=== PATIENT | male | born 1970 | race Caucasian/White ===

== ENCOUNTER 2016-10-24 11:11 | Observation (INO) | payer MEDICARE, MEDICAID ==
[~2016-10-24] VITALS: Ht 194.3 cm; Wt 117.7 kg
[~2016-10-24 11:11] MED LIST: AMBIEN 10MG10 MG PO; ASPIRIN E.C.325 MG PO; ATIVAN 1MG T1 MG/TAB PO; BACTRIM DS 8001 TAB PO; CARDENE 30MG CA30 MG PO; CEPHALEXIN500 M1 PO; COZAAR 25MG25 MG/TAB PO; DEXILANT30 MG PO; DICLOFENAC SOD75 MG PO; DILAUDID 4MG TAB4 MG PO; FLUOXETINE20 M1 PO; INDAPAMIDE2.5 MG PO; KLOR-CON M2020 MEQ PO; LORTAB 5/500 501 TAB PO; MS CONTIN 115 MG/TAB PO; MVI PO; NAPROSYN500 MG PO; NEURONTIN600 MG/TAB; NEURONTIN800 MG/TAB PO; NITROSTAT0.3 MG SL; NO HOME MEDICATIONS; NORCO 325 MG-101 TAB PO; NORCO 325 MG-51 TAB PO; NORCO 325 MG-7.1 TAB PO; OXYCONTIN 20MG20 MG PO; PERCOCET 325 MG1 TA2 PO; PERCOCET 325 MG1 TAB PO; PERCR 7.5 PO; PHENERGAN 25 TA25 MG PO; PRAVASTATIN40 MG PO; PREDNISONE10 MG PO; PROZAC 20MG20 MG PO; RANITIDINE150 MG PO; RESTORIL30 MG PO; VALIUM5 MG PO; VIIBRYD10 MG PO; XANAX .25M0.25 MG/TA PO; ZANAFLEX 4MG TAB4 MG; ZANAFLEX 4MG TAB4 MG PO; ZANTAC 150MG T150 MG PO; ZANTAC150 MG PO; ZESTRIL 5MG5 MG PO; ZOCOR40 MG PO; ZYLOPRIM 300MG300 MG PO; [UNRECOGNIZED DRUG - OTHER]
[2016-10-24] MEDS ORDERED: REXULTI0.5 MG PO (11:28)
[2016-10-24 12:12] LABS: BASO # 0.1 (0.0-0.2); BASO % 1.1 % (0.0-2.0); EOS # 0.2 (0.0-0.7); EOS % 1.9 % (0-4.0); GRAN # 5.3 (1.4-6.5); GRAN % 61.5 % (42.2-75.2); HEMATOCRIT 47.1 % (42.0-52.0); HEMOGLOBIN 16.2 g/dl (13.5-18.0); LYMPH # 2.4 (1.2-3.4); LYMPH % 28.2 % (20.0-51.0); MEAN CELL VOLUME 87 fl (80.0-100.0); MEAN CORPUSCULAR HEMOGLOBIN 30 pg (27.0-31.0); MEAN CORPUSCULAR HGB CONC 34 g/dl (33.0-37.0); MEAN PLATELET VOLUME 10.5 fl (7.4-10.4); MONO # 0.6 (0.1-0.6); MONO % 7.1 % (1.7-9.3); PLATELET COUNT 268 K/mm3 (130-400); RED BLOOD COUNT 5.39 M/mm3 (4.20-5.60); REDCELL DISTRIBUTION WIDTH-CV 12.3 % (11.5-14.5); WHITE BLOOD COUNT 8.6 K/mm3 (4.8-10.8)
[2016-10-24 12:26] LABS: ADJUSTED CALCIUM 9.3 mg/dL (8.4-10.2); ALANINE AMINOTRANSFERASE 60 U/L (21-72); ALBUMIN 4.7 gm/dL (3.5-5.0); ALKALINE PHOSPHATASE 108 U/L (50-136); ANION GAP 13 mmol/L (7-16); BLOOD UREA NITROGEN 21 mg/dL (9-20); C-REACTIVE PROTEIN 0.6 mg/dL (0.0-0.9); CALCIUM 9.9 mg/dL (8.4-10.2); CARBON DIOXIDE 25 mmol/L (22-30); CHLORIDE 100 mmol/L (98-107); CREATININE, serum 1.02 mg/dL (0.66-1.25); GLUCOSE 101 mg/dL (74-106); LIPASE 111 U/L (23-300); POTASSIUM 3.7 mmol/L (3.4-5.0); SODIUM 138 mmol/L (137-145); TOTAL PROTEIN 8.3 gm/dL (6.4-8.2)
[2016-10-24 12:32] LABS: B-TYPE NATRIURETIC PEPTIDE 35 pg/mL (0-125)
[2016-10-24 12:42] LABS: TROPONIN-I < 0.012 ng/mL (0.000-0.034)
[2016-10-24 14:58] VITALS: BP 130/83; PULSE 57; TEMP 97.7
[2016-10-24] MEDS ORDERED: LOZOL1.25 MG PO (15:09)
[2016-10-24 18:20] VITALS: BP 127/81; PULSE 67; TEMP 97
[2016-10-24 19:38] VITALS: BP 135/73; PULSE 58; TEMP 97.1
[2016-10-24 23:41] VITALS: BP 115/80; PULSE 58; TEMP 97.5
[2016-10-25] VITALS (7 sets, daily range): BP systolic 113–136; BP diastolic 74–80; PULSE 53–92; TEMP 97.3–97.9
[2016-10-25 08:17] LABS: BASO # 0.1 (0.0-0.2); EOS # 0.2 (0.0-0.7); EOS % 2.7 % (0-4.0); GRAN # 5.5 (1.4-6.5); GRAN % 65.7 % (42.2-75.2); HEMATOCRIT 47.1 % (42.0-52.0); HEMOGLOBIN 15.8 g/dl (13.5-18.0); LYMPH # 1.9 (1.2-3.4); LYMPH % 22.6 % (20.0-51.0); MEAN CELL VOLUME 89 fl (80.0-100.0); MEAN CORPUSCULAR HEMOGLOBIN 30 pg (27.0-31.0); MEAN CORPUSCULAR HGB CONC 34 g/dl (33.0-37.0); MEAN PLATELET VOLUME 10.5 fl (7.4-10.4); MONO # 0.6 (0.1-0.6); MONO % 7.6 % (1.7-9.3); PLATELET COUNT 271 K/mm3 (130-400); RED BLOOD COUNT 5.29 M/mm3 (4.20-5.60); REDCELL DISTRIBUTION WIDTH-CV 12.6 % (11.5-14.5); WHITE BLOOD COUNT 8.4 K/mm3 (4.8-10.8)
[2016-10-25 08:42] LABS: ANION GAP 11 mmol/L (7-16); BLOOD UREA NITROGEN 17 mg/dL (9-20); CALCIUM 9.5 mg/dL (8.4-10.2); CARBON DIOXIDE 29 mmol/L (22-30); CHLORIDE 97 mmol/L (98-107); CREATININE, serum 1.07 mg/dL (0.66-1.25); GLUCOSE 103 mg/dL (74-106); POTASSIUM 3.4 mmol/L (3.4-5.0); SODIUM 137 mmol/L (137-145)
[2016-10-25 08:50] LABS: TROPONIN-I < 0.012 ng/mL (0.000-0.034)
[2016-10-25] MEDS ORDERED: ASPIRIN E.C. 8181 MG PO (15:19)
[2016-10-25] MEDS ORDERED: LIPITOR 40MG TA40 MG PO (15:19)
[2016-10-25] MEDS ORDERED: PLAVIX 75MG TAB75 MG PO (15:20)
== END 2016-10-25 16:03 | disposition home or self-care (01) ==
LOC: COL.ER 11:11 → MEDICAL 13:12
PROVIDERS: Emergency Medicine; Internal Medicine
DX: R07.89 Other chest pain (principal); I25.10 Atherosclerotic heart disease of native coronary artery without angina pectoris; I10 Essential (primary) hypertension; F43.10 Post-traumatic stress disorder, unspecified; F17.210 Nicotine dependence, cigarettes, uncomplicated; Z23 Encounter for immunization
CPT/HCPCS: 99222-AI; 99232-AI; A9502; G0378; J2270; J2405; J2785

== ENCOUNTER 2016-11-05 10:05 | Observation (INO) | payer MEDICARE, MEDICAID ==
[~2016-11-05] VITALS: Ht 193 cm; Wt 116.7 kg
[~2016-11-05 10:05] MED LIST changes: +ASPIRIN E.C. 8181 MG PO; +LIPITOR 40MG TA40 MG PO; +LOZOL1.25 MG PO; +PLAVIX 75MG TAB75 MG PO; +REXULTI0.5 MG PO
[2016-11-05 10:53] LABS: BASO % 0.2 % (0.0-2.0); EOS # 0.2 (0.0-0.7); EOS % 1.1 % (0-4.0); GRAN # 11.9 (1.4-6.5); GRAN % 86.7 % (42.2-75.2); HEMATOCRIT 47.5 % (42.0-52.0); HEMOGLOBIN 16.3 g/dl (13.5-18.0); INR 1.1 (0.8-3.0); LYMPH % 7.2 % (20.0-51.0); MEAN CELL VOLUME 87 fl (80.0-100.0); MEAN CORPUSCULAR HEMOGLOBIN 30 pg (27.0-31.0); MEAN CORPUSCULAR HGB CONC 34 g/dl (33.0-37.0); MEAN PLATELET VOLUME 9.9 fl (7.4-10.4); MONO # 0.6 (0.1-0.6); MONO % 4.1 % (1.7-9.3); PARTIAL THROMBOPLASTIN TIME 27.9 SECONDS (26.0-37.0); PLATELET COUNT 284 K/mm3 (130-400); PROTHROMBIN TIME 12.1 SECONDS (9.7-12.8); RED BLOOD COUNT 5.46 M/mm3 (4.20-5.60); REDCELL DISTRIBUTION WIDTH-CV 12.3 % (11.5-14.5); WHITE BLOOD COUNT 13.8 K/mm3 (4.8-10.8)
[2016-11-05 11:03] LABS: ADJUSTED CALCIUM 9.2 mg/dL (8.4-10.2); ALANINE AMINOTRANSFERASE 50 U/L (21-72); ALBUMIN 4.5 gm/dL (3.5-5.0); ALKALINE PHOSPHATASE 113 U/L (50-136); ANION GAP 13 mmol/L (7-16); BLOOD UREA NITROGEN 23 mg/dL (9-20); CALCIUM 9.6 mg/dL (8.4-10.2); CARBON DIOXIDE 29 mmol/L (22-30); CHLORIDE 97 mmol/L (98-107); CREATININE, serum 1.01 mg/dL (0.66-1.25); GLUCOSE 140 mg/dL (74-106); POTASSIUM 3.9 mmol/L (3.4-5.0); SODIUM 139 mmol/L (137-145); TOTAL PROTEIN 8.3 gm/dL (6.4-8.2)
[2016-11-05 11:23] LABS: TROPONIN-I < 0.012 ng/mL (0.000-0.034)
[2016-11-05 14:41] VITALS: BP 123/72; PULSE 73; TEMP 97.6
[2016-11-05 17:59] VITALS: BP 144/63; PULSE 72; TEMP 98.1
[2016-11-05 19:54] VITALS: BP 118/69; PULSE 73; TEMP 97.9
[2016-11-06] VITALS (13 sets, daily range): BP systolic 95–132; BP diastolic 57–84; PULSE 52–65; TEMP 97.3–98.3
[2016-11-06] MEDS ORDERED: LOPRESSOR 225 MG/TAB PO (13:32)
== END 2016-11-06 14:28 | disposition home or self-care (01) ==
LOC: COL.ER 10:05 → MEDICAL 11:42
PROVIDERS: Family Medicine
DX: I25.110 Atherosclerotic heart disease of native coronary artery with unstable angina pectoris (principal); R07.89 Other chest pain; I10 Essential (primary) hypertension; G89.29 Other chronic pain; M54.9 Dorsalgia, unspecified; F17.210 Nicotine dependence, cigarettes, uncomplicated; F43.10 Post-traumatic stress disorder, unspecified
CPT/HCPCS: 99222-AI; 99239; C1760; C1894; G0378; J2250; J2270; J2405; J3010; J7030; Q9967

== ENCOUNTER → 2016-11-16 | Outpatient (CLI) | payer MEDICARE, MEDICAID ==
[~2016-11-16] MED LIST changes: +CRUTCHES MC; +LOPRESSOR 225 MG/TAB PO; +NEURONTIN600 MG/TAB PO; +PRIL40 PO; +PRILOSEC 20MG20 MG PO; +ULTRAM 50MG TAB50 MG PO
== END ==
LOC: MHCPAIN 09:27
DX: G89.29 Other chronic pain (principal); M47.817 Spondylosis without myelopathy or radiculopathy, lumbosacral region; M54.16 Radiculopathy, lumbar region
CPT/HCPCS: G0463

== ENCOUNTER → 2016-12-06 | Outpatient (CLI) | payer MEDICARE, MEDICAID | LOC: MHCPAIN 07:51 | DX: M47.817 Spondylosis without myelopathy or radiculopathy, lumbosacral region (principal) | CPT/HCPCS: J1100 ==

== ENCOUNTER → 2016-12-12 | Outpatient (CLI) | payer MEDICARE, MEDICAID | LOC: MHCPAIN 11:37 | DX: G89.29 Other chronic pain (principal); M47.817 Spondylosis without myelopathy or radiculopathy, lumbosacral region; F17.210 Nicotine dependence, cigarettes, uncomplicated; Z79.02 Long term (current) use of antithrombotics/antiplatelets | CPT/HCPCS: G0463 ==

== ENCOUNTER → 2016-12-27 | Outpatient (CLI) | payer MEDICARE, MEDICAID | LOC: MHCPAIN 09:24 | DX: M47.817 Spondylosis without myelopathy or radiculopathy, lumbosacral region (principal) | CPT/HCPCS: J1100 ==

== ENCOUNTER 2017-01-15 15:55 | Emergency (ER) | payer OTHER ==
[~2017-01-15] VITALS: Ht 193 cm; Wt 118.2 kg
[~2017-01-15 15:55] MED LIST changes: -CRUTCHES MC; -NEURONTIN600 MG/TAB PO; -PRIL40 PO; -PRILOSEC 20MG20 MG PO; -ULTRAM 50MG TAB50 MG PO
[2017-01-15 15:57] VITALS: TEMP 98.4
[2017-01-15] MEDS ORDERED: CEPHALEXIN500 M1 PO (16:32)
[2017-01-15] MEDS ORDERED: PROZAC 20MG20 MG PO (16:48)
[2017-01-15 17:12] VITALS: BP 139/91; PULSE 97
== END 2017-01-15 17:15 | disposition home or self-care (01) ==
LOC: COL.ER 15:55
DX: S51.812A Laceration without foreign body of left forearm, initial encounter (principal); W26.0XXA Contact with knife, initial encounter; Y92.89 Other specified places as the place of occurrence of the external cause; I10 Essential (primary) hypertension; F17.210 Nicotine dependence, cigarettes, uncomplicated; Z23 Encounter for immunization; Z79.02 Long term (current) use of antithrombotics/antiplatelets; F32.9 Major depressive disorder, single episode, unspecified; F41.9 Anxiety disorder, unspecified

== ENCOUNTER → 2017-01-28 | Outpatient (CLI) | payer MEDICARE, MEDICAID ==
[~2017-01-28] MED LIST changes: +CRUTCHES MC; +NEURONTIN600 MG/TAB PO; +PRIL40 PO; +PRILOSEC 20MG20 MG PO; +ULTRAM 50MG TAB50 MG PO
== END ==
LOC: MHCPAIN 09:39
DX: G89.29 Other chronic pain (principal); M47.27 Other spondylosis with radiculopathy, lumbosacral region; F17.210 Nicotine dependence, cigarettes, uncomplicated
CPT/HCPCS: G0463

== ENCOUNTER → 2017-01-31 | Outpatient (CLI) | payer MEDICARE, MEDICAID | LOC: MHCPAIN 11:26 | DX: M47.817 Spondylosis without myelopathy or radiculopathy, lumbosacral region (principal) | CPT/HCPCS: J1100 ==

== ENCOUNTER → 2017-03-04 | Outpatient (CLI) | payer MEDICARE, MEDICAID | LOC: MHCPAIN 11:55 | DX: G89.29 Other chronic pain (principal); M47.817 Spondylosis without myelopathy or radiculopathy, lumbosacral region; M54.16 Radiculopathy, lumbar region; F17.210 Nicotine dependence, cigarettes, uncomplicated | CPT/HCPCS: G0463 ==

== ENCOUNTER 2017-03-13 11:40 | Emergency (ER) | payer MEDICARE, MEDICAID ==
[~2017-03-13] VITALS: Ht 193 cm; Wt 122.3 kg
[~2017-03-13 11:40] MED LIST changes: -CRUTCHES MC; -NEURONTIN600 MG/TAB PO; -PRIL40 PO; -PRILOSEC 20MG20 MG PO; -ULTRAM 50MG TAB50 MG PO
[2017-03-13 11:43] VITALS: BP 133/74; PULSE 80; TEMP 98.1
[2017-03-13] MEDS ORDERED: NEURONTIN600 MG/TAB PO (12:10)
[2017-03-13] MEDS ORDERED: ZANAFLEX 4MG TAB4 MG PO (12:12)
[2017-03-13] MEDS ORDERED: PERCOCET 325 MG1 TA2 PO (12:13)
[2017-03-13 12:28] LABS: BASO # 0.1 (0.0-0.2); BASO % 0.7 % (0.0-2.0); EOS # 0.3 (0.0-0.7); EOS % 2.9 % (0-4.0); GRAN % 60.8 % (42.2-75.2); HEMATOCRIT 42.7 % (42.0-52.0); HEMOGLOBIN 14.6 g/dl (13.5-18.0); LYMPH # 2.7 (1.2-3.4); LYMPH % 27.4 % (20.0-51.0); MEAN CELL VOLUME 88 fl (80.0-100.0); MEAN CORPUSCULAR HEMOGLOBIN 30 pg (27.0-31.0); MEAN CORPUSCULAR HGB CONC 34 g/dl (33.0-37.0); MEAN PLATELET VOLUME 10.2 fl (7.4-10.4); MONO # 0.8 (0.1-0.6); MONO % 7.8 % (1.7-9.3); PLATELET COUNT 290 K/mm3 (130-400); RED BLOOD COUNT 4.87 M/mm3 (4.20-5.60); REDCELL DISTRIBUTION WIDTH-CV 12.9 % (11.5-14.5); WHITE BLOOD COUNT 9.8 K/mm3 (4.8-10.8)
[2017-03-13 12:49] LABS: ERYTHROCYTE SEDIMENTATION RATE 6 mm/hr (0-15)
[2017-03-13] MEDS ORDERED: CRUTCHES MC (12:55)
== END 2017-03-13 13:08 | disposition home or self-care (01) ==
LOC: COL.ER 11:40
PROVIDERS: Physician Assistant
DX: M25.561 Pain in right knee (principal); F41.9 Anxiety disorder, unspecified; Z79.891 Long term (current) use of opiate analgesic
CPT/HCPCS: J1170; J2550

== ENCOUNTER → 2017-03-14 | Outpatient (CLI) | payer MEDICARE ==
[~2017-03-14] MED LIST changes: +CRUTCHES MC; +NEURONTIN600 MG/TAB PO; +PRIL40 PO; +PRILOSEC 20MG20 MG PO; +ULTRAM 50MG TAB50 MG PO
== END ==
LOC: MHCPAIN 09:16
DX: Z53.8 Procedure and treatment not carried out for other reasons (principal)
CPT/HCPCS: J1100; Q9967

== ENCOUNTER 2017-03-28 13:06 | Emergency (ER) | payer MEDICARE, MEDICAID ==
[~2017-03-28] VITALS: Ht 193 cm; Wt 122.3 kg
[~2017-03-28 13:06] MED LIST changes: -PRIL40 PO; -PRILOSEC 20MG20 MG PO; -ULTRAM 50MG TAB50 MG PO
[2017-03-28 13:09] VITALS: TEMP 98
[2017-03-28] MEDS ORDERED: PRILOSEC 20MG20 MG PO (13:37)
[2017-03-28] MEDS ORDERED: PRIL40 PO (13:39)
[2017-03-28 13:54] LABS: BASO # 0.1 (0.0-0.2); EOS # 0.3 (0.0-0.7); EOS % 2.6 % (0-4.0); GRAN # 6.3 (1.4-6.5); GRAN % 63.9 % (42.2-75.2); HEMATOCRIT 44.4 % (42.0-52.0); HEMOGLOBIN 15.4 g/dl (13.5-18.0); LYMPH # 2.2 (1.2-3.4); LYMPH % 22.4 % (20.0-51.0); MEAN CELL VOLUME 86 fl (80.0-100.0); MEAN CORPUSCULAR HEMOGLOBIN 30 pg (27.0-31.0); MEAN CORPUSCULAR HGB CONC 35 g/dl (33.0-37.0); MEAN PLATELET VOLUME 9.7 fl (7.4-10.4); MONO # 0.9 (0.1-0.6); MONO % 9.5 % (1.7-9.3); PLATELET COUNT 298 K/mm3 (130-400); RED BLOOD COUNT 5.14 M/mm3 (4.20-5.60); REDCELL DISTRIBUTION WIDTH-CV 12.7 % (11.5-14.5); WHITE BLOOD COUNT 9.9 K/mm3 (4.8-10.8)
[2017-03-28 14:05] LABS: ADJUSTED CALCIUM 8.8 mg/dL (8.4-10.2); ALANINE AMINOTRANSFERASE 43 U/L (21-72); ALBUMIN 4.8 gm/dL (3.5-5.0); ALKALINE PHOSPHATASE 105 U/L (50-136); ANION GAP 14 mmol/L (7-16); BILIRUBIN,TOTAL 0.8 mg/dL (0.0-1.0); BLOOD UREA NITROGEN 19 mg/dL (9-20); C-REACTIVE PROTEIN 0.7 mg/dL (0.0-0.9); CALCIUM 9.4 mg/dL (8.4-10.2); CARBON DIOXIDE 24 mmol/L (22-30); CHLORIDE 100 mmol/L (98-107); CREATININE, serum 0.89 mg/dL (0.66-1.25); GLUCOSE 96 mg/dL (74-106); LIPASE 149 U/L (23-300); POTASSIUM 3.7 mmol/L (3.4-5.0); SODIUM 137 mmol/L (137-145); TOTAL PROTEIN 8.5 gm/dL (6.4-8.2)
[2017-03-28 14:13] LABS: TROPONIN-I < 0.012 ng/mL (0.000-0.034)
[2017-03-28 14:18] LABS: PH 5 (5-8); SQUAMOUS EPITHELIAL None Seen /hpf; URINE APPEARANCE Clear; URINE BACTERIA None Seen /hpf; URINE BILIRUBIN Negative (NEGATIVE); URINE BLOOD 1+ (NEGATIVE); URINE COLOR Yellow; URINE GLUCOSE Negative (NEGATIVE); URINE KETONE Negative (NEGATIVE); URINE RBC 0-2 /hpf; URINE UROBILINOGEN Negative (NEGATIVE); URINE WBC 0-2 /hpf
[2017-03-28 16:44] VITALS: BP 132/84; PULSE 69
== END 2017-03-28 16:53 | disposition home or self-care (01) ==
LOC: COL.ER 13:06
PROVIDERS: Nurse Practitioner
DX: R10.30 Lower abdominal pain, unspecified (principal); R07.89 Other chest pain; I10 Essential (primary) hypertension; I25.10 Atherosclerotic heart disease of native coronary artery without angina pectoris; E78.00 Pure hypercholesterolemia, unspecified; E78.5 Hyperlipidemia, unspecified; F32.9 Major depressive disorder, single episode, unspecified; F41.9 Anxiety disorder, unspecified; M19.90 Unspecified osteoarthritis, unspecified site; G89.29 Other chronic pain; M54.9 Dorsalgia, unspecified; M79.669 Pain in unspecified lower leg; F17.210 Nicotine dependence, cigarettes, uncomplicated; Z79.82 Long term (current) use of aspirin; Z95.9 Presence of cardiac and vascular implant and graft, unspecified; Z87.19 Personal history of other diseases of the digestive system; Z87.39 Personal history of other diseases of the musculoskeletal system and connective tissue; Z89.022 Acquired absence of left finger(s); Z98.890 Other specified postprocedural states
CPT/HCPCS: J1170; J2270; J2405; J7030

== ENCOUNTER 2017-04-03 12:21 | Emergency (ER) | payer MEDICARE, MEDICAID ==
[~2017-04-03] VITALS: Ht 193 cm; Wt 122.3 kg
[~2017-04-03 12:21] MED LIST changes: +PRIL40 PO; +PRILOSEC 20MG20 MG PO
[2017-04-03 12:23] VITALS: TEMP 97.8
[2017-04-03 13:01] LABS: BASO # 0.1 (0.0-0.2); BASO % 0.8 % (0.0-2.0); EOS # 0.2 (0.0-0.7); EOS % 1.8 % (0-4.0); GRAN # 6.7 (1.4-6.5); GRAN % 63.3 % (42.2-75.2); HEMATOCRIT 43.5 % (42.0-52.0); HEMOGLOBIN 14.8 g/dl (13.5-18.0); LYMPH # 2.8 (1.2-3.4); LYMPH % 26.8 % (20.0-51.0); MEAN CELL VOLUME 88 fl (80.0-100.0); MEAN CORPUSCULAR HEMOGLOBIN 30 pg (27.0-31.0); MEAN CORPUSCULAR HGB CONC 34 g/dl (33.0-37.0); MEAN PLATELET VOLUME 9.7 fl (7.4-10.4); MONO # 0.7 (0.1-0.6); MONO % 6.5 % (1.7-9.3); PLATELET COUNT 279 K/mm3 (130-400); RED BLOOD COUNT 4.97 M/mm3 (4.20-5.60); REDCELL DISTRIBUTION WIDTH-CV 12.7 % (11.5-14.5); WHITE BLOOD COUNT 10.6 K/mm3 (4.8-10.8)
[2017-04-03 13:28] LABS: ALANINE AMINOTRANSFERASE 43 U/L (21-72); ALBUMIN 4.4 gm/dL (3.5-5.0); ALKALINE PHOSPHATASE 100 U/L (50-136); ANION GAP 13 mmol/L (7-16); BILIRUBIN,TOTAL 0.6 mg/dL (0.0-1.0); BLOOD UREA NITROGEN 18 mg/dL (9-20); C-REACTIVE PROTEIN < 0.5 mg/dL (0.0-0.9); CALCIUM 9.3 mg/dL (8.4-10.2); CARBON DIOXIDE 24 mmol/L (22-30); CHLORIDE 101 mmol/L (98-107); CREATININE, serum 0.94 mg/dL (0.66-1.25); GLUCOSE 97 mg/dL (74-106); POTASSIUM 3.7 mmol/L (3.4-5.0); SODIUM 138 mmol/L (137-145); TOTAL PROTEIN 7.8 gm/dL (6.4-8.2)
[2017-04-03 13:37] LABS: TROPONIN-I < 0.012 ng/mL (0.000-0.034)
[2017-04-03 13:39] LABS: INR 1.1 (0.8-3.0); PROTHROMBIN TIME 11.9 SECONDS (9.7-12.8)
[2017-04-03 13:42] LABS: PARTIAL THROMBOPLASTIN TIME 29.3 SECONDS (26.0-37.0)
[2017-04-03 15:08] VITALS: BP 134/78; PULSE 65
[2017-04-03] MEDS ORDERED: ULTRAM 50MG TAB50 MG PO (15:09)
== END 2017-04-03 15:12 | disposition home or self-care (01) ==
LOC: COL.ER 12:21
PROVIDERS: Family Medicine
DX: R07.89 Other chest pain (principal)
CPT/HCPCS: J1885

== ENCOUNTER → 2017-04-05 | Outpatient (CLI) | payer MEDICARE, MEDICAID ==
[~2017-04-05] MED LIST changes: +ULTRAM 50MG TAB50 MG PO
== END ==
LOC: MHCPAIN 11:21
DX: G89.29 Other chronic pain (principal); M47.817 Spondylosis without myelopathy or radiculopathy, lumbosacral region; M54.16 Radiculopathy, lumbar region; F17.210 Nicotine dependence, cigarettes, uncomplicated
CPT/HCPCS: G0463

== ENCOUNTER → 2017-04-11 | Outpatient (CLI) | payer MEDICARE, MEDICAID | LOC: MHCPAIN 11:11 | DX: M47.817 Spondylosis without myelopathy or radiculopathy, lumbosacral region (principal) | CPT/HCPCS: J1100; Q9967 ==

== ENCOUNTER → 2017-05-22 | Outpatient (CLI) | payer MEDICARE, MEDICAID | LOC: MHCPAIN 12:29 | DX: G89.29 Other chronic pain (principal); M47.27 Other spondylosis with radiculopathy, lumbosacral region; M53.3 Sacrococcygeal disorders, not elsewhere classified | CPT/HCPCS: G0463 ==

== ENCOUNTER → 2017-07-03 | Outpatient (CLI) | payer MEDICARE, MEDICAID | LOC: MHCPAIN 12:03 | DX: G89.29 Other chronic pain (principal); M47.27 Other spondylosis with radiculopathy, lumbosacral region; M53.3 Sacrococcygeal disorders, not elsewhere classified; F17.210 Nicotine dependence, cigarettes, uncomplicated | CPT/HCPCS: G0463 ==

== ENCOUNTER → 2017-09-20 | Outpatient (CLI) | payer MEDICARE | LOC: MHCPAIN 09:33 | DX: G89.29 Other chronic pain (principal); M47.27 Other spondylosis with radiculopathy, lumbosacral region; M53.3 Sacrococcygeal disorders, not elsewhere classified; F17.210 Nicotine dependence, cigarettes, uncomplicated | CPT/HCPCS: G0463 ==

== ENCOUNTER → 2017-12-13 | Outpatient (CLI) | payer MEDICARE, MEDICAID | LOC: MHCPAIN 09:29 | DX: G89.29 Other chronic pain (principal); M47.817 Spondylosis without myelopathy or radiculopathy, lumbosacral region; M54.16 Radiculopathy, lumbar region; M53.3 Sacrococcygeal disorders, not elsewhere classified; M48.02 Spinal stenosis, cervical region; M54.12 Radiculopathy, cervical region | CPT/HCPCS: G0463 ==

== ENCOUNTER → 2018-01-09 | Outpatient (CLI) | payer MEDICARE, MEDICAID | LOC: MHCPAIN 09:27 | DX: M50.322 Other cervical disc degeneration at C5-C6 level (principal) | CPT/HCPCS: J1100; J2250; J3010; Q9967 ==

== ENCOUNTER → 2018-02-10 | Outpatient (CLI) | payer MEDICARE, MEDICAID | LOC: MHCPAIN 09:08 | DX: G89.29 Other chronic pain (principal); M50.10 Cervical disc disorder with radiculopathy, unspecified cervical region; R51 Headache; F17.210 Nicotine dependence, cigarettes, uncomplicated | CPT/HCPCS: G0463 ==

== ENCOUNTER 2018-04-06 22:16 | Emergency (ER) | payer MEDICARE, MEDICAID ==
[2018-04-06 22:18] VITALS: TEMP 97.9
[2018-04-06 22:49] LABS: BASO # 0.1 (0.0-0.2); BASO % 0.7 % (0.0-2.0); EOS # 0.3 (0.0-0.7); EOS % 2.5 % (0-4.0); GRAN # 6.3 (1.4-6.5); GRAN % 63.6 % (42.2-75.2); HEMATOCRIT 41.6 % (42.0-52.0); HEMOGLOBIN 14.2 g/dl (13.5-18.0); LYMPH # 2.5 (1.2-3.4); LYMPH % 24.7 % (20.0-51.0); MEAN CELL VOLUME 87 fl (80.0-100.0); MEAN CORPUSCULAR HEMOGLOBIN 30 pg (27.0-31.0); MEAN CORPUSCULAR HGB CONC 34 g/dl (33.0-37.0); MEAN PLATELET VOLUME 9.8 fl (7.4-10.4); MONO # 0.8 (0.1-0.6); MONO % 8.2 % (1.7-9.3); PLATELET COUNT 249 K/mm3 (130-400); RED BLOOD COUNT 4.77 M/mm3 (4.20-5.60); REDCELL DISTRIBUTION WIDTH-CV 12.5 % (11.5-14.5)
[2018-04-06 23:09] LABS: ALANINE AMINOTRANSFERASE 50 U/L (21-72); ALBUMIN 4.5 gm/dL (3.5-5.0); ALKALINE PHOSPHATASE 140 U/L (50-136); ANION GAP 11 mmol/L (7-16); AST,SGOT 34 U/L (15-37); BILIRUBIN,TOTAL 0.7 mg/dL (0.0-1.0); BLOOD UREA NITROGEN 12 mg/dL (9-20); CALCIUM 9.5 mg/dL (8.4-10.2); CARBON DIOXIDE 27 mmol/L (22-30); CHLORIDE 98 mmol/L (98-107); CREATININE, serum 1.22 mg/dL (0.66-1.25); GLUCOSE 106 mg/dL (74-106); POTASSIUM 3.8 mmol/L (3.4-5.0); SODIUM 136 mmol/L (137-145); TOTAL PROTEIN 7.9 gm/dL (6.4-8.2)
[2018-04-06] MEDS ORDERED: MS CONTIN 115 MG/TAB PO (23:09)
[2018-04-06] MEDS ORDERED: PERCOCET 325 MG1 TA3 PO (23:09)
[2018-04-06] MEDS ORDERED: ZANAFLEX2 MG PO (23:10)
[2018-04-06] MEDS ORDERED: RANEXA1000 MG PO (23:10)
[2018-04-06 23:31] LABS: TROPONIN-I < 0.012 ng/mL (0.000-0.034)
[2018-04-07] MEDS ORDERED: FLEXERIL 1010 MG/TAB PO (01:32)
[2018-04-07 01:40] VITALS: BP 119/80; PULSE 62
== END 2018-04-07 01:41 | disposition home or self-care (01) ==
LOC: COL.ER 22:16
PROVIDERS: Emergency Medicine
DX: R07.9 Chest pain, unspecified (principal); R06.00 Dyspnea, unspecified; I10 Essential (primary) hypertension; M54.9 Dorsalgia, unspecified; G89.29 Other chronic pain; F17.228 Nicotine dependence, chewing tobacco, with other nicotine-induced disorders; E66.9 Obesity, unspecified; Z95.5 Presence of coronary angioplasty implant and graft; Z79.82 Long term (current) use of aspirin; Z79.891 Long term (current) use of opiate analgesic
CPT/HCPCS: J1885; J2270; J2360; J7030

== ENCOUNTER → 2018-04-11 | Outpatient (CLI) | payer MEDICARE, MEDICAID ==
[~2018-04-11] MED LIST changes: +FLEXERIL 1010 MG/TAB PO; +PERCOCET 325 MG1 TA3 PO; +RANEXA1000 MG PO; +ZANAFLEX2 MG PO
== END ==
LOC: MHCPAIN 09:22
DX: G89.29 Other chronic pain (principal); M47.817 Spondylosis without myelopathy or radiculopathy, lumbosacral region; M54.16 Radiculopathy, lumbar region; M53.3 Sacrococcygeal disorders, not elsewhere classified; M50.90 Cervical disc disorder, unspecified, unspecified cervical region; M54.12 Radiculopathy, cervical region; R51 Headache
CPT/HCPCS: G0463

== ENCOUNTER → 2018-05-01 | Outpatient (CLI) | payer MEDICARE, MEDICAID | LOC: MHCPAIN 12:49 | DX: M54.16 Radiculopathy, lumbar region (principal) | CPT/HCPCS: J1040; J2250; J3010; Q9967 ==

== ENCOUNTER → 2018-06-03 | Outpatient (CLI) | payer MEDICARE, MEDICAID | LOC: MHCPAIN 13:35 | DX: G89.29 Other chronic pain (principal); M47.817 Spondylosis without myelopathy or radiculopathy, lumbosacral region; M54.16 Radiculopathy, lumbar region; M53.3 Sacrococcygeal disorders, not elsewhere classified | CPT/HCPCS: G0463 ==

== ENCOUNTER → 2018-08-05 | Outpatient (CLI) | payer MEDICARE, MEDICAID | LOC: MHCPAIN 12:20 | DX: G89.29 Other chronic pain (principal); M47.817 Spondylosis without myelopathy or radiculopathy, lumbosacral region; M54.16 Radiculopathy, lumbar region; M53.3 Sacrococcygeal disorders, not elsewhere classified; M54.81 Occipital neuralgia; M50.90 Cervical disc disorder, unspecified, unspecified cervical region; M54.12 Radiculopathy, cervical region; R51 Headache | CPT/HCPCS: G0463 ==

== ENCOUNTER → 2018-08-07 | Outpatient (CLI) | payer MEDICARE, MEDICAID | LOC: MHCPAIN 09:40 | DX: M54.12 Radiculopathy, cervical region (principal); M50.90 Cervical disc disorder, unspecified, unspecified cervical region | CPT/HCPCS: J1100; J2250; J3010; Q9967 ==

== ENCOUNTER → 2018-10-07 | Outpatient (CLI) | payer MEDICARE, MEDICAID | LOC: MHCPAIN 08:43 | DX: G89.29 Other chronic pain (principal); M47.817 Spondylosis without myelopathy or radiculopathy, lumbosacral region; M54.16 Radiculopathy, lumbar region; M53.3 Sacrococcygeal disorders, not elsewhere classified; M54.81 Occipital neuralgia; M50.90 Cervical disc disorder, unspecified, unspecified cervical region; M54.12 Radiculopathy, cervical region; R51 Headache | CPT/HCPCS: G0463 ==

== ENCOUNTER → 2018-11-24 | Outpatient (CLI) | payer MEDICARE, MEDICAID | LOC: MHCPAIN 10:25 | DX: G89.29 Other chronic pain (principal); M47.817 Spondylosis without myelopathy or radiculopathy, lumbosacral region; M54.16 Radiculopathy, lumbar region; M53.3 Sacrococcygeal disorders, not elsewhere classified ==

== ENCOUNTER → 2019-02-16 | Outpatient (CLI) | payer MEDICARE, MEDICAID | LOC: MHCPAIN 10:02 | DX: G89.29 Other chronic pain (principal); M47.817 Spondylosis without myelopathy or radiculopathy, lumbosacral region; M54.16 Radiculopathy, lumbar region; M53.3 Sacrococcygeal disorders, not elsewhere classified | CPT/HCPCS: G0463 ==

== ENCOUNTER → 2019-04-27 | Outpatient (CLI) | payer MEDICARE, MEDICAID | LOC: MHCPAIN 02-19 14:22 | DX: G89.29 Other chronic pain (principal); M47.817 Spondylosis without myelopathy or radiculopathy, lumbosacral region; M54.16 Radiculopathy, lumbar region; M53.3 Sacrococcygeal disorders, not elsewhere classified | CPT/HCPCS: G0463 ==

== ENCOUNTER → 2019-07-22 | Outpatient (CLI) | payer MEDICARE, MEDICAID | LOC: MHCPAIN 09:49 | DX: G89.29 Other chronic pain (principal); M47.817 Spondylosis without myelopathy or radiculopathy, lumbosacral region; M54.16 Radiculopathy, lumbar region | CPT/HCPCS: G0463 ==

== ENCOUNTER → 2019-10-20 | Outpatient (CLI) | payer MEDICARE | LOC: MHCPAIN 10:00 | DX: M47.817 Spondylosis without myelopathy or radiculopathy, lumbosacral region (principal); M54.16 Radiculopathy, lumbar region | CPT/HCPCS: G0463 ==

== ENCOUNTER → 2019-12-09 | Outpatient (CLI) | payer MEDICARE, MEDICAID | LOC: MHCPAIN 07:57 | DX: M54.2 Cervicalgia (principal); G89.29 Other chronic pain; F17.210 Nicotine dependence, cigarettes, uncomplicated | CPT/HCPCS: G0463 ==

== ENCOUNTER 2020-02-19 14:07 | Emergency (ER) | payer MEDICARE ==
[~2020-02-19] VITALS: Ht 193 cm; Wt 118.2 kg
[2020-02-19 14:22] VITALS: TEMP 98.1
[2020-02-19 16:22] LABS: STREP SCREEN NEGATIVE
[2020-02-19] MEDS ORDERED: CLEOCIN HCL300 MG PO (16:33)
[2020-02-19] MEDS ORDERED: PREDNISONE20 MG PO (16:33)
[2020-02-19 17:28] LABS: BASO # 0.1 (0.0-0.2); BASO % 0.7 % (0.0-2.0); EOS # 0.1 (0.0-0.7); EOS % 0.5 % (0-4.0); GRAN # 8.7 (1.4-6.5); GRAN % 81.3 % (42.2-75.2); HEMATOCRIT 44.7 % (42.0-52.0); HEMOGLOBIN 15.1 g/dl (13.5-18.0); LYMPH # 1.4 (1.2-3.4); LYMPH % 13.4 % (20.0-51.0); MEAN CELL VOLUME 87 fl (80.0-100.0); MEAN CORPUSCULAR HEMOGLOBIN 29 pg (27.0-31.0); MEAN CORPUSCULAR HGB CONC 34 g/dl (33.0-37.0); MEAN PLATELET VOLUME 9.7 fl (7.4-10.4); MONO # 0.4 (0.1-0.6); MONO % 3.4 % (1.7-9.3); PLATELET COUNT 283 K/mm3 (130-400); RED BLOOD COUNT 5.15 M/mm3 (4.20-5.60); REDCELL DISTRIBUTION WIDTH-CV 12.5 % (11.5-14.5)
[2020-02-19 17:36] LABS: ALBUMIN 4.3 gm/dL (3.5-5.0); BILIRUBIN,TOTAL 0.6 mg/dL (0.0-1.0); CALCIUM 9.2 mg/dL (8.4-10.2); CREATININE, serum 1.03 (0.66-1.25); TOTAL PROTEIN 7.8 gm/dL (6.4-8.2)
[2020-02-19 18:09] VITALS: BP 150/90; PULSE 70
== END 2020-02-19 18:01 | disposition home or self-care (01) ==
LOC: COL.ER 14:07
PROVIDERS: Physician Assistant
DX: J02.9 Acute pharyngitis, unspecified (principal); I10 Essential (primary) hypertension; F41.9 Anxiety disorder, unspecified; M10.9 Gout, unspecified; F17.210 Nicotine dependence, cigarettes, uncomplicated; Z79.82 Long term (current) use of aspirin
CPT/HCPCS: J1100; J7030; Q9967